=== PATIENT | male | born 1990 | race Caucasian/White ===

== ENCOUNTER → 2024-01-16 07:25 | Outpatient (REF) | payer OTHER, SELFPAY | LOC: HWRCS 07:25 | PROVIDERS: ATTENDING PHYSICIAN Internal Medicine Interventional Cardiology; FAMILY PHYSICIAN Internal Medicine | DX: E78.2 Mixed hyperlipidemia (principal); Z82.49 Family history of ischemic heart disease and other diseases of the circulatory system | CPT/HCPCS: 93306 ==

== ENCOUNTER → 2024-06-09 12:54 | Outpatient (REF) | payer OTHER, SELFPAY | LOC: MRI 3T 12:54 | PROVIDERS: ATTENDING PHYSICIAN Specialist; FAMILY PHYSICIAN Internal Medicine | DX: M25.561 Pain in right knee (principal) | CPT/HCPCS: 70030; 73721 ==

== ENCOUNTER 2024-06-27 04:32 | Observation (INO) | payer OTHER, SELFPAY ==
[2024-06-26 19:58] VITALS: BP 135/89
[2024-06-26 20:09] LABS: Glucose - Point of Care 101 mg/dl (70-99)
[2024-06-26 20:26] LABS: % Basophils 0.5 % (0-2); % Eosinophils 7.2 % (0-6); % Immature Granulocytes 0.3 % (0-0.5); % Lymphocytes 38.3 % (20.5-51.1); % Monocytes 8.7 % (1.7-9.3); Absolute Eosinophils 0.5 10^3/uL (0-0.7); Absolute Lymphocytes 2.4 10^3/uL (1.2-3.4); Absolute Monocytes 0.5 10^3/uL (0.1-0.6); Absolute Neutrophils 2.8 10^3/uL (1.4-6.5); Hematocrit 43.4 % (39.0-52.0); Hemoglobin 14.9 g/dL (13.0-18.0); Mean Corp Hgb Conc. 34.3 g/dL (33.0-37.0); Mean Corpuscular Volume 87.3 fL (80.0-94.0); Mean Platelet Volume 10.7 fL (7.4-10.4); Nucleated Red Blood Cells % 0 % (-); Platelet Count 212 10^3/uL (130-400); Red Blood Cell Count 4.97 10^6/uL (4.70-6.10); Red Cell Dist. Width 12.2 % (11.5-14.5); White Blood Cell Count 6.2 10^3/uL (4.8-10.8)
[2024-06-26 20:43] LABS: ALT (SGPT) 57 U/L (0-50); AST (SGOT) 39 U/L (17-59); Albumin 4.8 g/dl (3.5-5.0); Alkaline Phosphatase 74 U/L (38-126); Blood Urea Nitrogen 23 mg/dl (9-20); Calcium 9.7 mg/dl (8.4-10.2); Carbon Dioxide 29 mmol/L (22-30); Chloride 101 mmol/L (98-107); Glucose 101 mg/dl (70-99); Potassium 4.4 mmol/L (3.5-5.1); Sodium 141 mmol/L (135-145); Total Bilirubin 0.5 mg/dl (0.2-1.3); Total Protein 7.3 g/dl (6.3-8.2); eGFR > 60.00
--- NOTE | 2024-06-26 22:21 | ED.GENMED ---
History of Present Illness
General
Chief Complaint: Visual Problem
Source: patient
Exam Limitations: none
Time Seen by Provider: 06/26/24 22:11
History of Present Illness
History of Present Illness:
Patient was driving about 6 PM with sudden onset of left-sided visual changes. Noted with the left side of both eyes. Lasted about 30 minutes. Resolved. Mild headache associated with this. Mild nausea. No other neurologic symptoms. No history
of same
Past History
Past History
ED Past Medical History: Hypercholesterolemia
ED Past Surgical History: None
Social History
Tobacco: Non-smoker (Occasional cigar)
Personal: Single
Review of Systems
Review of Systems
All Other Systems: Not applicable
Neurological: Denies dizzy, weakness or numbness
Phy Exam
Physical Exam
Physical Exam:
GENERAL: Alert and oriented in no apparent distress
EYE: Orbits normal.
NECK: Supple, no carotid bruit
ENT: Pharynx without erythema
CARDIAC: Regular rate and rhythm without any obvious murmurs.
LUNGS: Clear breath sounds,normal
ABDOMEN: Soft, without focal tenderness or distention
NEUROLOGICAL: Alert and oriented , speech normal. Cranial nerves II through XII intact. Extraocular muscles intact. [id number] normal. Gait normal. Eye confrontation normal
SKIN: Warm and dry, no rash or lesion, no discoloration, skin intact.
MUSCULOSKELETAL: No edema,no deformity.Good color
PSYCH: Normal and appropriate interaction.
Course
Orders/Labs/Results
Orders:
Orders
06/26/24 20:02
Electrocardiogram (*1) Urgent
Reason for Study: Vertigo / Dizzy
EKG- Treatment ONCE
06/26/24 20:09
Complete Blood Count/With Diff Urgent
Comprehensive Metabolic Panel Urgent
Erythrocyte Sed Rate Urgent
Comment: ADDON
06/26/24 20:23
CT Head W/o Iv Contrast Urgent
Comment:
Reason For Exam: visual changes
06/26/24 22:20
Add On- LAB Urgent
Tests Added?: esr
Electrocardiogram (*1) Stat
Reason for Study: Other
Other Reason for Exam: neuro symptoms
CT Head & Neck Angio W/wo IV Urgent
Comment:
Reason For Exam: Transient left sided hemianopsia
EKG- Treatment ONCE
06/27/24 00:45
Aspirin Chewable [Low Strength Aspirin] 81 mg PO NOW STA
Clopidogrel Bisulfate [Plavix] 75 mg PO NOW STA
Abnormal Lab Results
06/26/24 06/26/24
20:07 20:09
MPV 10.7 H fL
(7.4-10.4)
Eosinophils % 7.2 H %
(0-6)
BUN 23 H mg/dl
(9-20)
Glucose 101 H mg/dl
(70-99)
ALT 57 H U/L
(0-50)
POC Glucose 101 H mg/dl
(70-99)
06/26/24 20:09
06/26/24 20:09
Vital Signs
Initial and Last Documented VS:
Initial Vital Signs
Temp Pulse Resp BP Pulse Ox
98.1 F 69 18 135/89 100
06/26/24 19:58 06/26/24 19:58 06/26/24 19:58 06/26/24 19:58 06/26/24 19:58
Last Documented Vital Signs
Temp Pulse Resp BP Pulse Ox
98.1 F 63 18 133/84 100
06/26/24 19:58 06/26/24 22:46 06/26/24 22:46 06/26/24 22:46 06/26/24 22:46
MDM/Problems Addressed
Differential Diagnosis Includes:
Patient describing transient hemianopsia. Neurologic exam normal. No carotid bruit. Does have a history of elevated cholesterol. Most consistent with an ocular migraine but must consider vascular issue. CTA pending. ESR pending. Discussed
with neurology. Admit aspirin Plavix
*Radiology
Radiology exam reviewed: radiology read reviewed (Right PICA not clearly seen. To consider ischemia.)
*Pulse Oximetry
Patient hypoxic: no
*EKG
Interpreted by ED Provider?: Yes
Interpretation: normal
Comparison EKG: no comparison EKG present
Heart Rate: 67
Rate: normal
Rhythm: sinus
[place]: normal axis
Interval: normal interval and short OH
QRS Pattern: normal QRS
Ischemia: no ischemia
*Critical Care Note
Total Time (30-74mins, 75-104mins- exclusive of procedures): Not Applicable
ED Attending Note
-
Portions of this chart may have been created with voice recognition software.� Occasional wrong word or��sound alike� substitutions may have occurred due to the inherent limitations of voice recognition software.
Discharge Plan
Departure
Patient Disposition: Admit
Date of Disposition: 06/27/24
Time of Disposition: 00:47
Presentation/result/management discussed w/ accepting MD/DO: Neurology
Discharge Problem:
Transient left hemianopsia, defect r PICA
Referrals:
Bin West DO [Family Provider] -
Interventions
Interventions:
*Risk Screen - Suicide Last Done: 06/26/24 20:01
*General Assessment Last Done: 06/26/24 22:46
ED- Fall Risk Assessment Last Done: 06/26/24 22:53
ED- Neurological Assessment Last Done: 06/27/24 01:11
ED-EENT Assessment Last Done: 06/26/24 22:53
ED Swallowing Screen Last Done: 06/26/24 22:55
Discharge Date and Time
Print Language: ALBANIAN
[2024-06-26 22:41] VITALS: BMI 25.9
[2024-06-26 22:46] VITALS: BP 133/84
[2024-06-26 22:50] LABS: Erythrocyte Sed Rate 8 mm/hour (0-20)
[2024-06-27] VITALS (10 sets, daily range): BP systolic 82–136; BP diastolic 55–81; PULSE 76–84
[2024-06-27] MEDS: LOW STRENGTH ASPIRIN 81 MG PO ×2 (01:03→08:40)
[2024-06-27] MEDS: PLAVIX 75 MG PO ×2 (01:03→08:40)
--- NOTE | 2024-06-27 03:44 | HPS.HSE ---
Family Physician
-
Family Physician: Bin West
Chief Complaint
-
Vision Change
History of Present Illness
Patient is a 34y M with PMH significant for dyslipidemia who presents to ED complaining of vision changes. Patient states that he was driving around 6:30 PM this evening when he noted blurring vision in his L visual field. He states that vision
was a 'swirl of colors' and that objects would 'disappear' as they moved to his left. This occurred when closing either eye or with both eyes open.
He presented to an Urgent Care for evaluation and was advised to come to the ED.
His symptoms began to improve around 7:00 PM and are not fully resolved.
He did complain of mild frontal headache as 'pins and needles' over the R scalp associated with his symptoms.
He had no numbness / tingling / weakness of the extremities. No ataxia or abnormal speech.
Patient denies any prior history of similar symptoms.
Patient states that he took a dose of 'Cholester-off' tonight for the first time - an OTC cholesterol lowering agent from [employer].
No other new / current medications.
He also states that he as ill with cold / congestion symptoms about two weeks ago. These symptoms have since fully resolved.
Medical History
Past Medical History
Past Medical History: Reports Other
Additional Past Medical History:
Dyslipidemia
Past Surgical History: Reports None
Social History
Tobacco: Smoker (Current some day cigar smoker. About 5 / month.)
Alcohol: Occasional
Drug: None
Family History
Family History: Other (Father: DM, Cholesterol Mother: Tongue Cancer (recently - April) MGF: TIAs, CHF, DM )
Allergies / Home Medications
Allergies reflects when Allergies were last updated in [employer].
Home Medications with original date entered in [employer]
Allergy/Medication List:
Allergies
Allergy/AdvReac Type Severity Reaction Status Date / Time
No Known Allergies Allergy Verified 09/12/16 15:36
Home Medications
No Meds [No Current Medications] 06/27/24
Review of Systems
-
History Source: Patient
A 12 point ROS was completed and negative except as noted: Yes
Constitutional: Denies Fever, Fatigue or Chills
EENT: Denies Sore Throat
Respiratory: Denies Cough or Trouble Breathing
Cardiac: Denies Chest Pain or Palpitations
Abdomen/GI: Denies Abdominal Pain, Nausea, Vomiting or Diarrhea
: Denies Dysuria, Frequency or Flank Pain
Musculoskeletal: Reports Joint Pain (R shoulder / R knee); Denies Edema
Neurological: Reports Headache and Other (Vision change); Denies Dizzy, Weakness or Numbness
Psych: Reports Anxiety; Denies Depression
Physical Exam
Vital Signs
Vital Signs
Temp Pulse Resp BP Pulse Ox
98.1 F 63 18 133/84 100
06/26/24 19:58 06/26/24 22:46 06/26/24 22:46 06/26/24 22:46 06/26/24 22:46
Physical Exam
General: Other (34y M in no acute distress. Mildly anxious.)
HEENT: Moist mucous membranes and PERRLA
Respiratory: Clear; No Wheezes, Rales or Rhonchi
Cardiac: S1/S2 and Regular Rhythm; No Murmur
GI: Soft, Non Tender, Non Distended and Normal Bowel Sounds
Musculoskeletal: No Clubbing, No Cyanosis and No Edema
Neuro: AO x 3, Nonfocal/grossly intact and Other (Visual field is intact with excellent peripheral vision and no current 'color changes', etc.)
Laboratory Results
-
06/26/24 20:09
06/26/24 20:09
Laboratory Results
Total Bilirubin 0.5 mg/dl (0.2-1.3) 06/26/24 20:09
AST 39 U/L (17-59) 06/26/24 20:09
ALT 57 U/L (0-50) H 06/26/24 20:09
Alkaline Phosphatase 74 U/L (38-126) 06/26/24 20:09
Impression/Plan
-
A/P: Patient is a 34y M with PMH significant for dyslipidemia who presents to ED complaining of transient vision changes this evening.
Visual Field Changes
- Observe overnight for further evaluation and treatment.
- L visual field deficit / abnormality.
- CTA done in the ED shows absence of R PICA - which could be anatomic variant - but which correlates with area of patient's symptoms.
- Monitor overnight for any new / recurrent symptoms.
- MRI / MRA brain in the AM for further evaluation.
- Neurology consult.
- DAPT for now. Add statin.
- Check AM lipids, A1C, etc.
DVT Prophylaxis: SCDs
Code Status: Full
[2024-06-27 06:41] LABS: Hematocrit 46.3 % (39.0-52.0); Hemoglobin 16.1 g/dL (13.0-18.0); Mean Corp Hgb Conc. 34.8 g/dL (33.0-37.0); Mean Corpuscular Hgb 30.1 pg (27.0-31.0); Mean Corpuscular Volume 86.5 fL (80.0-94.0); Mean Platelet Volume 10.4 fL (7.4-10.4); Platelet Count 197 10^3/uL (130-400); Red Blood Cell Count 5.35 10^6/uL (4.70-6.10); Red Cell Dist. Width 12.1 % (11.5-14.5); White Blood Cell Count 5.8 10^3/uL (4.8-10.8)
[2024-06-27 06:57] LABS: Blood Urea Nitrogen 18 mg/dl (9-20); Carbon Dioxide 26 mmol/L (22-30); Chloride 103 mmol/L (98-107); Estimated Creatinine Clearance 123 ml/min; Glucose 95 mg/dl (70-99); HDL Cholesterol 57 mg/dl; LDL Cholesterol, Calculated 221 mg/dl; Potassium 4.2 mmol/L (3.5-5.1); Sodium 142 mmol/L (135-145); Total Cholesterol 299 mg/dl (50-199); Triglyceride 108 mg/dl (10-149); Very Low Density Lipoprotein 21 mg/dl (0-30); eGFR > 60.00
--- NOTE | 2024-06-27 07:58 | CON.NEURO ---
Consultation
Order
Date of Consultation: 06/27/24
Requesting Provider: Nick Murcia DO
Reason for Consult: stroke
CC: change in vision
HPI: this is a 34-year-old man who presented to [facility] on June 26, 2024 with visual symptoms.
Mr. Ashton recalls a sudden biocular painless positive dynamic visual phenomena in the the left peripheral visual field with associated scotoma lasting for about half an hour while driving yesterday around 6:30 p.m. He also experienced a mild R sided
head paresthesias and headache with during the episode.
The patient reportedly took CholestOff(Plant Sterols/Stanols, Pantethine, [place] Tree, Gelatin, Grandy Oil Esters, Pantethine, Glycerin, Medium Chain Triglycerides, Rapeseed Lecithin, Colors Added (including Fife) first time half an hour prior
his symptoms onset.
No reports of head trauma, change in strength, speech, language ,vertigo, hyperacusis or abnormal movements.
The patient has a history of headaches, occurring approximately two times a month, usually on the right side. He has experienced visual distortion once before when exiting an elevator, which lasted only a moment. He reports taking Advil for
headache relief and denies any light sensitivity or nausea associated with his headaches.
ER VS: 135/89-82/55, 63, afebrile, saturating well on room air
EKG: NSR, QTc Int : 390 ms
PDMP:none
Labs: Glucose�101, normal WBC, hemoglobin, creatinine, sodium, LDL�221.
CTA head/neck-No significant vascular occlusion, aneurysm or dissection. Probable absent right PICA, normal variant.
Brain MRI�no acute infarcts.
PMH: DLP
PSH: none
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
FH:mother-tongue CA, no FH of migraines
All:NKDA
ROS:Constitutional: Negative. Negative for chills, fever and unexpected weight change.
HENT: positive for nasal congestion
Eyes: Positive for transient visual disturbance.
Respiratory: Negative for cough, choking and shortness of breath.
Cardiovascular: Negative for chest pain, palpitations and leg swelling.
Gastrointestinal: Negative for abdominal pain and vomiting.
Endocrine: Negative. Negative for cold intolerance.
Genitourinary: Negative for dysuria, flank pain and urgency.
Musculoskeletal: Negative for back pain, gait problem, neck pain and neck stiffness.
Skin: Negative for rash.
Allergic/Immunologic: Negative. Negative for immunocompromised state.
Neurological: positive for headaches.
Psychiatric/Behavioral: Negative for behavioral problems, confusion and hallucinations.
General: Well developed. In no acute distress.
Cardio: Regular rate and rhythm without murmur. Extremities are without cyanosis or edema.
Neuro:
Mental Status: Alert, oriented to person, place, and date. Normal attention and recall. Good fund of knowledge. Follows complex requests across the midline. Comprehension, naming, and repetition intact. Immediate and delayed recall 3/3.
Cranial Nerves: . Pupils are equally round and reactive to light. EOMs full. Visual bagley full to confrontation. No ptosis. No nystagmus. V1-V3 intact to light touch and pinprick bilaterally, symmetric. Face symmetric. Normal hearing AU.
The palate elevated well. SCMs and traps 5/5. Tongue midline. No dysarthria.
Motor: Normal bulk and tone. No pronator or arm drift. Strength 5/5 throughout. No clonus.
Reflexes: 2+ throughout the upper extremities and knees. 2/2 in AJs. Plantar responses flexor bilaterally.
Sensory: Normal pinprick, vibration and JPS.
Coordination: No dysmetria or tremor.
Gait: deferred
Assessment and Plan:
I. Probable migraine with visual/sensory aura
II. DLP
III. Transient hypotension
-Please obtain orthostatic vital signs
-Headache diary
-Please check ESR, CRP, TFTs
-Ophthalmology consult
-Outpatient neurology follow-up in 1-2 weeks.
I personally reviewed all radiology and labs along with past medical records pertinent to current medical problems. Total time spent in patient care is 60 minutes.
Thank you for allowing us to participate in the care of this patient. We will continue to follow. Please do not hesitate to contact us with any questions or concerns.
Subjective/Objective
Subjective Data
Date of Service: June 27, 2024
Objective Data
Vital Signs
Temp Pulse Resp BP Pulse Ox
36.7 C 59 17 82/55 99
06/26/24 19:58 06/27/24 06:30 06/27/24 06:30 06/27/24 06:15 06/27/24 06:30
Lab Results
06/27/24 05:56
06/27/24 05:56
Sodium 142 mmol/L (135-145) 06/27/24 05:56
Potassium 4.2 mmol/L (3.5-5.1) 06/27/24 05:56
BUN 18 mg/dl (9-20) 06/27/24 05:56
Glucose 95 mg/dl (70-99) 06/27/24 05:56
Calcium 10.0 mg/dl (8.4-10.2) 06/27/24 05:56
LDL Cholesterol, Calc 221 mg/dl 06/27/24 05:56
Patient Allergies
No Known Allergies Allergy (Verified 09/12/16 15:36)
Medications
-
Active Medications
Generic Name Dose Route Start Last Admin
Trade Name Freq PRN Reason Stop Dose Admin
Acetaminophen 650 mg 06/27/24 05:05
Acetaminophen 325 Mg Tablet PO 07/25/24 05:04
Q4HPRN PRN
Mild Pain / Temp > 101
Aspirin 81 mg 06/27/24 08:00
Aspirin 81 Mg Chewable Tablet PO 07/25/24 07:59
DAILY CECILY
Atorvastatin Calcium 40 mg 06/27/24 18:00
Atorvastatin (Lipitor) 40 Mg Tablet PO 07/25/24 17:59
QPM CECILY
Clopidogrel Bisulfate 75 mg 06/27/24 08:00
Clopidogrel 75 Mg Tablet PO 07/25/24 07:59
DAILY CECILY
Home Medications
�Medication �Instructions �Recorded
No Meds [No Current Medications] 06/27/24
Vital Signs and Labs
-
Vital Signs and Labs:
Vital Signs
Temp Pulse Resp BP Pulse Ox
36.7 C 66 16 109/72 99
06/26/24 19:58 06/27/24 07:59 06/27/24 07:59 06/27/24 07:59 06/27/24 07:59
Lab Results
06/27/24 05:56
06/27/24 05:56
Sodium 142 mmol/L (135-145) 06/27/24 05:56
Potassium 4.2 mmol/L (3.5-5.1) 06/27/24 05:56
BUN 18 mg/dl (9-20) 06/27/24 05:56
Glucose 95 mg/dl (70-99) 06/27/24 05:56
Calcium 10.0 mg/dl (8.4-10.2) 06/27/24 05:56
LDL Cholesterol, Calc 221 mg/dl 06/27/24 05:56
Medications
-
Medications:
Generic Name Dose Route Start Last Admin
Trade Name Freq PRN Reason Stop Dose Admin
Acetaminophen 650 mg 06/27/24 05:05
Acetaminophen 325 Mg Tablet PO 07/25/24 05:04
Q4HPRN PRN
Mild Pain / Temp > 101
Aspirin 81 mg 06/27/24 08:00
Aspirin 81 Mg Chewable Tablet PO 07/25/24 07:59
DAILY CECILY
Atorvastatin Calcium 40 mg 06/27/24 18:00
Atorvastatin (Lipitor) 40 Mg Tablet PO 07/25/24 17:59
QPM CECILY
Clopidogrel Bisulfate 75 mg 06/27/24 08:00
Clopidogrel 75 Mg Tablet PO 07/25/24 07:59
DAILY CECILY
Home Medications
-
Home Medications
No Meds [No Current Medications] 06/27/24
--- NOTE | 2024-06-27 07:58 | EDRN ---
the pt was brought back from MRI, the pt is resting in stretcher in the lowest position, side rails up x2, call rodriguez within reach, HOB elevated, no s/s of distress, VS WNL, no c/o chest pain, no c/o SOB, no c/o lightheadedness or dizziness, no c/o
headache, the pt denies needing anything at this time, will continue to monitor the pt closely
[2024-06-27 08:15] LABS: Glycohemoglobin (HgbA1c) 5.3 % (4.0-5.6)
--- NOTE | 2024-06-27 08:44 | EDRN ---
neurology currently at the pts bedside speaking with the pt
--- NOTE | 2024-06-27 09:27 | EDRN ---
the pt is resting in stretcher in the lowest position, side rails up x1, HOB elevated, no s/s of distress, VS WNL, the pt was able to take his oral medications with water with no issues, the pt is ordering his breakfast, will continue to monitor the
pt closely
--- NOTE | 2024-06-27 09:44 | EDRN ---
case management currently at the pts bedside speaking with the pt
--- NOTE | 2024-06-27 09:47 | EDRN ---
the pts breakfast was delivered and it was brought to the pt, the pt is now eating
--- NOTE | 2024-06-27 09:53 | CM ---
CM reviewed medical records. OBS letter given and explained. Patient stated that his father told him that he should not have gone to the ER due to ER copay. CM explained that patient would have to present to the emergency room for treatment unless
he was a direct admit. CM discussed ER copay. CM provided patient with number for patient financial services to discuss final obligation and to make payment arrangements.
CM confirmed demographics. Patient is active with his PCP. Patient uses [facility] pharmacy.
PLAN: Home no needs.
--- NOTE | 2024-06-27 11:27 | EDRN ---
labs drawn and sent
--- NOTE | 2024-06-27 11:53 | W.PN.HOSP.TC ---
Addendum entered and electronically signed by Turner Pathak MD 06/27/24 14:15:
mri reviewed
-without evidence of acute change
-likely related to migraine with aura per neuro
outpatient neuro follow up
-migraine clinic
outpatient ophthalmology follow up
Original Note:
Today's Communication/Plan
-
Assessment / Plan
Assessment / Plan
Mr. Emerson Lincoln is a 34yoM pmh HLD admitted today for a headache w vision changes.
Visual Field Changes
- CT/CTA head/neck: No significant vascular occlusion, aneurysm or dissection. Probable absent right PICA, normal variant.
- MRI/a head/neck: no acute intracranial abnormalities. No focal hemodynamically significant stenosis, aneurysm or occlusion.
- ESR 8
- TSH 1.01
- CRP<5
- neuro consulted
- f/u outpt neuro, ophthalmology
DVT Prophylaxis
- SCDs
Code Status: FULL CODE
Diet: regular
Anticipated Discharge: Today
Subjective/Interval History
-
Date of Service: June 27, 2024
Mr. Emerson Lincoln is a 34yoM pmh HLD admitted today for a headache w vision changes. Reported L scotoma in b/l eyes that lasted a half hour last night while driving. Pt is not experiencing any sx currently.
Objective Data
-
Labs:
Laboratory Results
06/27/24
05:56
WBC 5.8
Hgb 16.1
Hct 46.3
Plt Count 197
Sodium 142
Potassium 4.2
Chloride 103
Carbon Dioxide 26
BUN 18
Creatinine 0.8
Glucose 95
Calcium 10.0
Vital Signs:
Vital Signs
Temp Pulse Resp BP Pulse Ox
98.5 F 71 16 109/72 99
06/27/24 08:48 06/27/24 08:48 06/27/24 08:48 06/27/24 08:48 06/27/24 08:48
Review of Systems
-
History Source: Patient
Constitutional: Reports No Symptoms
Respiratory: Reports No Symptoms
Cardiac: Reports No Symptoms
Abdomen/GI: Reports No Symptoms
Musculoskeletal: Reports No Symptoms
Neuro: Reports No Symptoms
Physical Exam
-
General: Well Developed, Well Nourished and No Apparent Distress
HEENT: Normocephalic, Atraumatic and Moist Mucous Membranes
Respiratory: Clear to Auscultation and Non Labored Respirations
Cardiac: Regular Rhythm and S1/S2
GI: Soft, Nontender, Nondistended, Normal Bowel Sounds and No Hepatosplenomegaly
Musculoskeletal: No Clubbing, No Cyanosis and No Edema
Skin: Warm and Dry
Neuro: Awake, AO x 3, Central Nerve's Intact, No Sensory Deficits and DTR's Intact & Symmetrica
Psych: Calm
[2024-06-27 11:56] LABS: C-Reactive Protein < 5.00 mg/L (0.0-10.00)
[2024-06-27 12:26] LABS: TSH Reflex To Free T4 1.01 uIU/ml (0.47-4.68)
--- NOTE | 2024-06-27 12:36 | W.DCSUMMARY ---
Documented by User: Angelique Meyer DO, Resident 06/27/24 13:06
Discharge Summary
Discharge Data
Date of Admission: 06/27/24
Date of Discharge: 06/27/24
-
Pending Results: No
Hospital Course
Mr. Emerson Lincoln is a 34yo M pmh HLD who was admitted early this morning for a headache with transient vision loss. He was monitored overnight with no worsening symptoms. No acute intracranial abnormalities on head CT/MRI. Absence of R PICA on head
CTA, which could be an anatomic variant. On brain/neck MRI, there is no hemodynamically significant stenosis, aneurysm, or occlusion. Evaluated by neurology. No focal neurological deficits, DTRs intact, CN's intact, no current symptoms.
Hemodynamically stable, afebrile. Will need to follow up with outpatient neurology and ophthalmology.
Discharge Plan
-
Patient Disposition: Home (Routine Discharge)
Discharge Diagnosis/Procedures: migraine with aura
Condition: Good
Activity Restrictions/Additional Instructions:
Please follow up with an court manager and a neurologist for your migraine.
Instructions: Migraines (DC), How to Keep Track of Your Headaches
Referrals:
[facility] [Provider Group] - in one to two weeks
Bin West DO [Family Provider] -
Jaycee oJe MD [Active] - in one to two weeks
Prescriptions:
No Action
No Current Medications
0
Discharge Orders:
Discharge Patient (As Directed); Ordered 06/27/24
Ordered By: Angelique Meyer
Discharge Date and Time
Print Language: [place]

Documented by User: Turner Pathak MD 06/27/24 14:11
Discharge Summary
Discharge Data
Date of Admission: 06/27/24
Date of Discharge: 06/27/24
Discharge Plan
-
Patient Disposition: Home (Routine Discharge)
Discharge Diagnosis/Procedures: migraine with aura
Condition: Good
Activity Restrictions/Additional Instructions:
Please follow up with an court manager and a neurologist for your migraine.
Instructions: Migraines (DC), How to Keep Track of Your Headaches
Referrals:
[facility] [Provider Group] - in one to two weeks
Bin West, DO [Family Provider] -
Jaycee Joe MD [Active] - in one to two weeks
Prescriptions:
No Action
No Current Medications
0
Discharge Orders:
Discharge Patient (As Directed); Ordered 06/27/24
Ordered By: Angelique Meyer
Discharge Date and Time
Print Language: [place]
--- NOTE | 2024-06-27 12:37 | EDRN ---
upon discharge teaching the pt stated that he wanted to speak to the neurologist regarding his MRI that he spoke to earlier, this RN notified Dr. Joe
--- NOTE | 2024-06-27 12:41 | EDRN ---
orthostatic vital signs performed per neurologist orders
--- NOTE | 2024-06-27 12:45 | EDRN ---
Dr. Joe stated to this RN, that the pt was already spoken to and that plan was discussed with him, this RN notified the pt and the pt still wants to speak to a provider, this RN notified Dr. Pathak who then referred this RN to Angelique Meyer
--- NOTE | 2024-06-27 12:52 | CM ---
Plan for discharge to home today.
PLAN: Home no needs.
--- NOTE | 2024-06-27 12:58 | EDRN ---
this RN spoke with Angelique Meyer and they are going to come to the pts bedside and speak with the pt, shortly after this RN spoke to the provider, the pt approached this RN at the nurses station and asked if he could speak to someone and this RN
notified him that the provider is going to come to the bedside and speak with him
--- NOTE | 2024-06-27 13:00 | EDRN ---
Angelique Meyer currently at the pts bedside speaking with the pt
--- NOTE | 2024-06-27 13:05 | EDRN ---
Angelique Meyer DO spoke with the pt and the pt is okay to go home now
== END 2024-06-27 13:07 | disposition home or self-care (01) ==
LOC: ED 04:32
PROVIDERS: ADMITTING PHYSICIAN Hospitalist; ATTENDING PHYSICIAN Hospitalist; CONSULT PHYSICIAN Psychiatry & Neurology Neurology; EMERGENCY PHYSICIAN Emergency Medicine; FAMILY PHYSICIAN Internal Medicine
DX: H53.462 Homonymous bilateral field defects, left side (principal); H53.453 Other localized visual field defect, bilateral; R51.9 Headache, unspecified; R11.0 Nausea; E78.00 Pure hypercholesterolemia, unspecified; F17.290 Nicotine dependence, other tobacco product, uncomplicated; R42 Dizziness and giddiness; R20.2 Paresthesia of skin; I95.9 Hypotension, unspecified; J34.1 Cyst and mucocele of nose and nasal sinus; Z83.3 Family history of diabetes mellitus; Z82.49 Family history of ischemic heart disease and other diseases of the circulatory system
CPT/HCPCS: 70450; 70496; 70498; 70544; 70548; 70551; 80048; 80053; 80061; 82962; 83036; 84443; 85025; 85027; 85652; 86140; 93005; A9585; G0378; Q9967